=== PATIENT | male | born 2005 | race Caucasian/White ===

== ENCOUNTER 2024-02-21 13:51 | Emergency (ER) | payer OTHER ==
[~2024-02-21] VITALS: Ht 175.3 cm; Wt 76.7 kg
[2024-02-21 13:56] VITALS: BP 112/71; PULSE 102; RESP 18; TEMP 97.4; O2SAT 100
[2024-02-21] MEDS ORDERED: CEPH-588 PO (14:20)
[2024-02-21] MEDS ORDERED: MUPI2CRE22 TP (14:20)
== END 2024-02-21 14:40 | disposition home or self-care (01) ==
LOC: MED 13:51
DX: L30.8 Other specified dermatitis (principal); L01.00 Impetigo, unspecified; Z91.040 Latex allergy status; Z91.018 Allergy to other foods; Z79.899 Other long term (current) drug therapy; Z91.011 Allergy to milk products
CPT/HCPCS: 99281